=== PATIENT | male | born 1945 | race African-American/Black ===

== ENCOUNTER 2017-02-25 06:07 | Emergency (ER) | payer OTHER ==
[~2017-02-25] VITALS: Ht 182.9 cm; Wt 72.0 kg
[2017-02-25] MEDS ORDERED: IOVERSOL 350 MG/ML 100 ML VIAL ONE (06:15)
[2017-02-25] MEDS ORDERED: SODIUM CHLORIDE 0.9% 100 ML ONE (06:16)
[2017-02-25 06:18] LABS: GLUCOSE,POINT OF CARE 80 MG/DL (70-110)
[2017-02-25] MEDS ORDERED: INSLAN SQ (06:21)
[2017-02-25] MEDS ORDERED: IRON-24 PO (06:21)
[2017-02-25] MEDS ORDERED: HYDR10TA31 PO (06:21)
[2017-02-25] MEDS ORDERED: LISI-661 PO (06:21)
[2017-02-25] MEDS ORDERED: SIMV-260 PO (06:21)
[2017-02-25 06:35] LABS: BASOPHILS % (AUTO) 0.4 % (0.0-2.0); EOSINOPHILS % (AUTO) 6.5 % (1.0-6.0); HEMATOCRIT 30.5 % (41-53); HEMOGLOBIN 10.3 g/dL (13.5-17.5); LYMPHOCYTES # (AUTO) 1.8 K/uL (1.0-4.8); LYMPHOCYTES % (AUTO) 31.3 % (22.0-44.0); MEAN CORPUSCULAR HEMOGLOBIN 30.2 pg (26.0-34.0); MEAN CORPUSCULAR HGB CONC 33.8 G/dL (31.0-37.0); MEAN CORPUSCULAR VOLUME 89 fL (80-100); MONOCYTES # (AUTO) 0.5 K/uL (0.1-1.0); MONOCYTES % (AUTO) 8.6 % (2.0-9.0); NEUTROPHILS # (AUTO) 3.1 K/uL (1.8-7.7); NEUTROPHILS % (AUTO) 53.2 % (40.0-70.0); PLATELET COUNT (AUTO) 159 K/uL (150-450); RED BLOOD CELL COUNT(AUTO) 3.41 MIL/uL (4.50-5.90); RED CELL DISTRIBUTION WIDTH 13.6 % (11.5-14.5); WHITE BLOOD COUNT (AUTO) 5.9 K/uL (4.5-11.0)
[2017-02-25 06:42] LABS: ANION GAP 7 mmol/L (8-16); CALCIUM, TOTAL 9.5 mg/dL (8.8-10.5); CARBON DIOXIDE 29 mmol/L (22-29); CHLORIDE 104 mmol/L (98-107); CREATININE 3.14 mg/dL (0.60-1.30); GLOMERULAR FILTR. RATE CALC 24 mL/min (>60); POTASSIUM 4.7 mmol/L (3.5-5.1); PROTHROMBIN TIME 10.6 SEC (9.4-11.6); SODIUM SERUM 140 mmol/L (136-145); UREA NITROGEN, BLOOD 27 mg/dL (7-18)
[2017-02-25 07:06] LABS: ALANINE AMINOTRANSFERASE 18 U/L (12-78); ALBUMIN 3.3 g/dL (3.4-5.0); ASPARTATE AMINOTRANSFERASE 19 U/L (15-37); BILIRUBIN,TOTAL 0.3 mg/dL (0.1-1.0); CREATINE KINASE MB 2.3 ng/mL (0-5); CREATINE KINASE, TOTAL 126 U/L (39-308); TOTAL PROTEIN, SERUM 6.7 g/dL (6.4-8.2)
[2017-02-25] MEDS ORDERED: SODIUM CHLORIDE 0.9% 1,000 ML IV ONE (07:15)
[2017-02-25] MEDS ORDERED: ASPIRIN 325 MG EC TABLET PO ONE (07:15)
[2017-02-25 07:22] LABS: GLUCOSE,POINT OF CARE 51 MG/DL (70-110)
[2017-02-25 07:27] LABS: GLUCOSE,POINT OF CARE 50 MG/DL (70-110)
[2017-02-25 08:02] LABS: GLUCOSE COMMENT 2 Juice/Food/D50 Given; GLUCOSE,POINT OF CARE 65 MG/DL (70-110)
[2017-02-25] MEDS ORDERED: DEXTROSE 50%-WATER 25 GM/50 ML SYRINGE IVP ONE (08:15)
[2017-02-25] MEDS ORDERED: LABETALOL HCL 5 MG/ML 20 ML VIAL IVP ONE (08:45)
[2017-02-25 09:22] LABS: APPEARANCE,URINE CLEAR (CLEAR); GLUCOSE, URINE (UA) NEGATIVE (NEGATIVE); KETONES,URINE NEGATIVE (NEGATIVE); LEUKOCYTE ESTERASE ,URINE NEGATIVE (NEGATIVE); OCCULT BLOOD,URINE NEGATIVE (NEGATIVE)
[2017-02-25 09:22] LABS: GLUCOSE,POINT OF CARE 127 MG/DL (70-110)
[2017-02-25 09:31] LABS: ADD UA MICROSCOPIC NO; PROTEIN,URINE NEGATIVE (NEGATIVE)
[2017-02-25 09:57] LABS: GLUCOSE,POINT OF CARE 176 MG/DL (70-110)
[2017-02-25 10:49] VITALS: BP 162/92
== END 2017-02-25 11:00 | disposition short-term general hospital (02) ==
LOC: EMS 06:09
DX: R53.1 Weakness (principal); E11.649 Type 2 diabetes mellitus with hypoglycemia without coma; R79.1 Abnormal coagulation profile; I10 Essential (primary) hypertension; Z79.4 Long term (current) use of insulin
CPT/HCPCS: 36415; 70450; 70496; 71010; 80053; 81003; 82550; 82553; 82948; 82962; 84484; 85025; 85610; 85730; 93005; 96361; 96374; 99285; J3490; J7030; J7050; Q9967